=== PATIENT | female | born 1980 | race Caucasian/White ===

== ENCOUNTER 2021-06-12 15:53 | Emergency (ER) | payer MEDICAID ==
[~2021-06-12] VITALS: Ht 157.5 cm; Wt 82.0 kg
[2021-06-12 16:09] VITALS: BP 127/86
--- NOTE | 2021-06-12 19:22 | NUR ---
NIL X 1 WHEN CALLED TO SEE PROVIDER IN TRIAGE.
--- NOTE | 2021-06-12 20:37 | NUR ---
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
--- NOTE | 2021-06-12 21:31 | NUR ---
NOT IN LOBBY
== END 2021-06-12 21:33 ==
LOC: ED 16:15
DX: M79.621 Pain in right upper arm (principal); Z53.21 Procedure and treatment not carried out due to patient leaving prior to being seen by health care provider

== ENCOUNTER 2021-06-15 20:54 | Emergency (ER) | payer MEDICAID ==
[~2021-06-15] VITALS: Ht 157.5 cm; Wt 83.0 kg
[2021-06-15] MEDS ORDERED: IBUPROFEN 600 MG TABLET PO ONE (21:30)
--- NOTE | 2021-06-15 21:49 | NUR ---
Pt ambulatory to room from lobby at this time.
[2021-06-15] MEDS ORDERED: IBUPROFEN 600 MG TABLET ONE (22:13)
--- NOTE | 2021-06-15 23:11 | NUR ---
BEDSIDE REPORT TO VIJAYA FERREIRA.
--- NOTE | 2021-06-15 23:44 | NUR ---
Patient is resting comfortably in bed. Bed in lowest, rails engaged, call light on lap. Vital Signs within normal limits. WCTM. NADN. RECEIEVED REPORT FROM JANA AROUND 230
[2021-06-16 00:03] VITALS: BP 133/86
== END 2021-06-16 00:08 | disposition home or self-care (01) ==
LOC: ED 22:36
DX: S46.111A Strain of muscle, fascia and tendon of long head of biceps, right arm, initial encounter (principal); S49.91XA Unspecified injury of right shoulder and upper arm, initial encounter; F17.200 Nicotine dependence, unspecified, uncomplicated; Z90.49 Acquired absence of other specified parts of digestive tract; X58.XXXA Exposure to other specified factors, initial encounter; Y93.89 Activity, other specified; Y92.009 Unspecified place in unspecified non-institutional (private) residence as the place of occurrence of the external cause; Y99.8 Other external cause status
CPT/HCPCS: 99283